=== PATIENT | female | born 1965 | race Caucasian/White ===

== ENCOUNTER 2017-04-06 17:13 | Emergency (ER) | END 2017-04-06 23:09 | disposition home or self-care (01) ==

== ENCOUNTER 2017-05-04 12:28 | Emergency (ER) | END 2017-05-04 14:36 | disposition home or self-care (01) ==

== ENCOUNTER 2017-10-03 23:13 | Emergency (ER) | END 2017-10-04 02:50 | disposition home or self-care (01) ==